=== PATIENT | male | born 1975 | race Caucasian/White ===

== ENCOUNTER → 2018-02-28 | Outpatient (CLI) | payer BC ==
--- NOTE | 2018-03-01 08:00 | XCELERA REPORT ---
[address] [address] Lower Extremity Venous Evaluation Name: DUARTE REINA Age: 42 yrs Gender: Male : 1975 Patient Status: Outpatient Patient Location: Study Date: 02/28/2018 01:47 PM Procedure: Color flow and duplex imaging bilaterally of the veins of the lower extremities as well as the Common Femoral veins. Reason For Study: EDEMA, KNEE EFFUSION Ordering Physician: ZEE TRINIDAD Performed By: Mallorie Monson Right Sided Venous Evaluation Normal vessel filling wall to wall, compression and augmentation as well as Colour flow down to the infrageniculate veins. Left Sided Venous Evaluation Normal vessel filling wall to wall, compression and augmentation as well as Colour flow down to the infrageniculate veins. Interpretation Summary No duplex evidence of DVT or obstruction in the bilateral lower extremities. : ZEE TRINIDAD > Giovanni Vallejo
== END ==
LOC: SP 13:31
PROVIDERS: ATTEND Physician Assistant
DX: M54.12 Radiculopathy, cervical region (principal); M25.50 Pain in unspecified joint; R60.9 Edema, unspecified; M79.662 Pain in left lower leg; M79.661 Pain in right lower leg
CPT/HCPCS: 93970